=== PATIENT | female | born 1965 | race Caucasian/White ===

== ENCOUNTER → 2017-05-15 08:03 | Outpatient (CLI) | payer MEDICAID ==
--- NOTE | ~2017-05-15 | EMG ---
PATIENT:LOAGN HOYOS DATE OF SERVICE: 05/15/17 MEDICAL RECORD: [id number] DATE OF : 63 LOCATION: [facility] ADMISSION DATE: REFERRING PHYSICIAN: RICHARD SELBY MD INTERPRETING PHYSICIAN: RICHARD SELBY MD DATE OF SERVICE: 05/15/2017 Referred as an outpatient by myself. ELECTROMYOGRAPHIC DATA: Electromyographic examination is limited to both upper extremities. In the right upper extremity, right median motor stimulation elicits a compound motor action potential with a distal latency of 3.6 milliseconds, peak amplitude of 4 millivolts, and calculated conduction velocity of 53 meters per second. Right ulnar motor stimulation elicits a compound motor action potential with a distal latency of 3.3 milliseconds, peak amplitude of 5 millivolts, and calculated conduction velocity of 54 meters per second. Right ulnar motor stimulation across the elbow is technically difficult due to the patient's inability to tolerate the procedure. Although there is a drop in amplitude to 2 millivolts and a drop in conduction velocity to 32 meters per second, this appears to be due to technical factors. Antidromic right median sensory stimulation elicits a response with a distal latency of 3.6 milliseconds, amplitude of 8 microvolts, and calculated conduction velocity of 50 meters per second. Antidromic right ulnar sensory stimulation elicits a response with a distal latency of 5.0 milliseconds, amplitude of 13 microvolts, and calculated conduction velocity of 54 meters per second. The right median F wave has a latency of 28 milliseconds. In the left upper extremity, left median motor stimulation elicits a compound motor action potential with a distal latency of 2.8 milliseconds, peak amplitude of 7 millivolts, and calculated conduction velocity of 55 meters per second. Left ulnar motor stimulation elicits a compound motor action potential with a distal latency of 3.0 milliseconds, peak amplitude of 5 millivolts, and calculated conduction velocity of 58 meters per second. Once again, the patient has difficulty tolerating proximal stimulation. The calculated conduction velocity was reduced to 32 meters per second across the elbow, but there is no corresponding drop in amplitude. Antidromic left median sensory stimulation elicits a response with a distal latency of 3.2 milliseconds, amplitude of 20 microvolts, and calculated conduction velocity of 57 meters per second. Antidromic left ulnar sensory stimulation elicits a response with a distal latency of 3.7 milliseconds, amplitude of 7 microvolts, and calculated conduction velocity of 42 meters per second. The left median F wave has a latency of 27 milliseconds. Needle electrode examination is limited to both upper extremities as well. Muscles interrogated include abductor pollicis brevis, first dorsal interosseous, abductor digiti minimi, pronator teres, biceps brachii, triceps, and deltoid. There is no abnormality of insertional activity and no abnormal spontaneous activity seen in all muscles interrogated. Motor unit potential morphology and pattern of motor unit potential firing and recruitment is normal in all muscles sampled. INTERPRETATION: Electromyographic examination of both upper extremities is ELECTROMYGRAM/NERVE CONDUCTION [id number] SOHA,LOGAN normal with the exception of mild prolongation of the right ulnar sensory distal latency. Technical factors are felt to account for changes in ulnar motor responses across the elbows bilaterally. 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 There is no electrical evidence of cervical radiculopathy or other lesion of the lower motor neuron in the upper extremities at this time. There is no evidence of active denervation. TRANSINT:[id number] Voice Confirmation ID: [id number] DOCUMENT ID: [id number] RICHARD SELBY MD CC: [id number] DICTATION DATE: 05/15/17922 [employer] SUPERVISOR: 05/15/17 [address] [facility] [address] [place] [address]
== END | disposition home or self-care (01) ==
LOC: D.CN 01-22 08:00
DX: I73.89 Other specified peripheral vascular diseases (principal); G56.03 Carpal tunnel syndrome, bilateral upper limbs